=== PATIENT | male | born 1945 | race Two or more races ===

== ENCOUNTER 2021-06-28 11:12 | Inpatient (IN) | payer BC, MEDICAID ==
[~2021-06-28] VITALS: Ht 172.7 cm; Wt 96.2 kg
[2021-06-28] MEDS ORDERED: TAM04C PO (13:14)
[2021-06-28] MEDS ORDERED: MORPHINE SULFATE INJECTION 2 MG/ML SYRG IV PRN (13:45)
[2021-06-28] MEDS ORDERED: NITROGLYCERIN 0.4 MG SL TAB SL PRN (13:45)
[2021-06-28] MEDS ORDERED: TAMSULOSIN HYDROCHLORIDE 0.4 MG CAP PO ONE (13:45)
[2021-06-28 15:10] LABS: Basophils # (auto) 0 10 ^3/uL (0-0.2); Basophils % (auto) 0.2 % (0.0-2.0); Eosinophils # (auto) 0.1 10 ^3/uL (0-0.8); Eosinophils % (auto) 1.8 % (0.0-7.0); Hematocrit 44.5 % (41.0-53.0); Hemoglobin 15.2 g/dL (13.5-17.5); Lymphocytes % (auto) 23.9 % (10.0-50.0); Mean Corpuscular Hemoglobin 29.4 pg (28.0-32.0); Mean Corpuscular Hgb Conc. 34.2 g/dL (32.0-36.0); Mean Corpuscular Volume 85.9 fL (80.0-100.0); Monocytes # (auto) 0.5 10 ^3/uL (0-1.3); Monocytes % (auto) 6.3 % (0.0-12.0); Neutrophils # (auto) 5.7 10 ^3/uL (1.6-8.6); Neutrophils % (auto) 67.8 % (37.0-80.0); Red Blood Cells 5.18 10^6/uL (4.5-5.90); Red Cell Distribution Width 14.8 % (11.8-14.3); White Blood Cell 8.4 10^3/uL (4.4-10.8)
[2021-06-28 15:27] LABS: INR 1.09 (0.9-1.15)
[2021-06-28 15:32] LABS: Albumin 3.9 g/dL (3.4-5.0); Calcium 8.9 mg/dL (8.5-10.1); Potassium 4.1 mmol/L (3.5-5.1)
[2021-06-28 15:36] LABS: BUN/Creatinine Ratio 18.4; Bilirubin, Total 0.6 mg/dL (0.2-1.0); Total Protein 7.9 g/dL (6.4-8.2)
[2021-06-28 17:28] LABS: Urine Bacteria NONE SEEN /hpf (None Seen); Urine Blood Negative /uL (Negative); Urine Mucus FEW (None Seen); Urine Specific Gravity 1.021 (1.001-1.035); Urine WBC <1 /hpf (0 - 3)
[2021-06-28] MEDS: FUROSEMIDE 40 MG/4 ML VIAL IV SCH (18:28)
[2021-06-28] MEDS ORDERED: HYDROcodone-ACET 5/325MG TAB PO PRN (19:36)
[2021-06-28] MEDS: CARVEDILOL 3.125 MG TAB PO SCH (22:00)
[2021-06-28] MEDS: ATORVASTATIN 20 MG TAB PO SCH (22:01)
[2021-06-28 22:30] VITALS: BP 107/58
[2021-06-29 05:00] VITALS: BP 118/62
[2021-06-29] MEDS: FUROSEMIDE 40 MG/4 ML VIAL IV SCH ×2 (06:15→17:55)
[2021-06-29 06:48] LABS: Basophils # (auto) 0 10 ^3/uL (0-0.2); Basophils % (auto) 0.2 % (0.0-2.0); Eosinophils # (auto) 0.2 10 ^3/uL (0-0.8); Eosinophils % (auto) 2.1 % (0.0-7.0); Hematocrit 40.3 % (41.0-53.0); Hemoglobin 13.7 g/dL (13.5-17.5); Lymphocytes # (auto) 2.1 10 ^3/uL (0.4-5.4); Lymphocytes % (auto) 26.7 % (10.0-50.0); Mean Corpuscular Hgb Conc. 33.9 g/dL (32.0-36.0); Mean Corpuscular Volume 85.6 fL (80.0-100.0); Monocytes # (auto) 0.7 10 ^3/uL (0-1.3); Nucleated Red Blood Cells % 0.1 %; Red Blood Cells 4.71 10^6/uL (4.5-5.90); Red Cell Distribution Width 14.7 % (11.8-14.3); White Blood Cell 8.1 10^3/uL (4.4-10.8)
[2021-06-29 06:50] LABS: Albumin 3.1 g/dL (3.4-5.0); Calcium 8.8 mg/dL (8.5-10.1); Potassium 3.7 mmol/L (3.5-5.1)
[2021-06-29 06:52] LABS: BUN/Creatinine Ratio 21.7
[2021-06-29 06:55] LABS: Bilirubin, Total 0.8 mg/dL (0.2-1.0); Total Protein 6.5 g/dL (6.4-8.2)
[2021-06-29 09:00] VITALS: BP_SYST 116; BP_SYST 133; BP_DIAS 69
[2021-06-29] MEDS: CARVEDILOL 3.125 MG TAB PO SCH ×2 (10:00→21:20)
[2021-06-29] MEDS: LOSARTAN POTASSIUM 25 MG TAB PO SCH (10:00)
[2021-06-29] MEDS ORDERED: CIPROFLOXACIN 400MG/200ML 200 ML IV ONE (10:30)
[2021-06-29] MEDS ORDERED: BUPIVACAINE 0.5% MPF INJ 30ML SDV IJ ONE (11:23)
[2021-06-29] MEDS ORDERED: MIDAZOLAM HCL 2MG/2ML 2ml VIAL (1mg/ml) ONE ×2 (11:26→11:45)
[2021-06-29] MEDS ORDERED: fentaNYL CITRATE 100 MCG/2 ML VL ONE (11:26)
[2021-06-29] MEDS ORDERED: BUPIVACAINE 0.5% P/F INJ 10 ML VIAL ONE (11:28)
[2021-06-29] MEDS ORDERED: DexAMETHasone SOD PHOS 10MG/1ML VIAL INJ ONE (11:31)
[2021-06-29] MEDS ORDERED: PROPOFOL 10 MG/ML 20 ML IV ONE (11:32)
[2021-06-29] MEDS ORDERED: ONDANSETRON HCL 4 MG/2 ML VIAL IV PRN (12:45)
[2021-06-29] MEDS ORDERED: MORPHINE SULFATE 4 MG/ML SYR/VIAL IV PRN (12:45)
[2021-06-29] MEDS ORDERED: LABETALOL HCL 5 MG/ML 4ML SYRINGE IV PRN (12:45)
[2021-06-29] MEDS ORDERED: ePHEDrine SULFATE 50 MG/ML AMP IV PRN (12:45)
[2021-06-29] MEDS ORDERED: MIDAZOLAM HCL 2MG/2ML 2ml VIAL (1mg/ml) IV PRN (12:45)
[2021-06-29] MEDS ORDERED: HYDROmorphone HCL 2 MG/ML VL IV PRN (12:45)
[2021-06-29] MEDS: ATORVASTATIN 20 MG TAB PO SCH (21:19)
[2021-06-29 22:00] VITALS: BP 100/67
[2021-06-30 04:57] VITALS: BP 136/67
[2021-06-30] MEDS: FUROSEMIDE 40 MG/4 ML VIAL IV SCH (05:20)
[2021-06-30 08:00] VITALS: BP 136/67
[2021-06-30 08:51] VITALS: BP 123/69
[2021-06-30] MEDS: CARVEDILOL 3.125 MG TAB PO SCH (09:05)
[2021-06-30] MEDS: LOSARTAN POTASSIUM 25 MG TAB PO SCH (09:05)
[2021-06-30 13:00] VITALS: BP 133/66
[2021-06-30] MEDS ORDERED: LOS25T PO (13:15)
[2021-06-30] MEDS ORDERED: CAR3125T PO (13:15)
[2021-06-30] MEDS ORDERED: ATOR20TA50 PO (13:15)
[2021-06-30] MEDS ORDERED: CIPR-173 PO (13:15)
[2021-06-30 16:04] VITALS: BP 123/69
[2021-06-30 16:48] VITALS: BP 128/65
== END 2021-06-30 17:35 | disposition home or self-care (01) | DRG 482 ==
LOC: ER 11:12 → TELE 13:43 → TELE-WESTW 22:02 → TELE-EAST 06-29 17:37
PROVIDERS: ADMIT Internal Medicine; ATTEND Internal Medicine
PROC: 0VT08ZZ Resection of Prostate, Via Natural or Artificial Opening Endoscopic (ICD-10-PCS; principal; 2021-06-29 11:24)
DX: N40.1 Benign prostatic hyperplasia with lower urinary tract symptoms (principal); I50.33 Acute on chronic diastolic (congestive) heart failure; N13.8 Other obstructive and reflux uropathy; I25.10 Atherosclerotic heart disease of native coronary artery without angina pectoris; R73.03 Prediabetes; Z20.822 Contact with and (suspected) exposure to COVID-19; R09.89 Other specified symptoms and signs involving the circulatory and respiratory systems; E66.9 Obesity, unspecified; E78.5 Hyperlipidemia, unspecified; I11.0 Hypertensive heart disease with heart failure; Z90.79 Acquired absence of other genital organ(s); Z95.1 Presence of aortocoronary bypass graft; Z68.32 Body mass index [BMI] 32.0-32.9, adult; Z71.3 Dietary counseling and surveillance
CPT/HCPCS: 36415; 51702; 71045; 80053; 80061; 81001; 83036; 83735; 83880; 85025; 85610; 85730; 87426; 93005; 93306; 96374; G0378; J1100; J2250; J2704; J3490